=== PATIENT | female | born 1985 | race Caucasian/White ===

== ENCOUNTER 2023-10-14 16:33 | Emergency (ER) | payer MEDICAID, SELFPAY ==
--- NOTE | 2023-10-14 16:37 | ED.GENADULT ---
HPI - General Adult General Chief complaint: Nausea/Vomiting/Diarrhea Stated complaint: Nausea Time Seen by Provider: 10/14/23 16:53 Source: patient, RN notes reviewed and old records reviewed Mode of arrival: ambulatory Limitations: no limitations History of Present Illness HPI narrative: 38-year-old female presents to the [facility] with complaints nausea and vomiting. Reports vomiting 12 times today. Patient reports that she recently found out she was at home test. Last menstrual period was around the 07 of September. Also states that she had a miscarriage last July Does not have an OBGYN. States that she has an appointment with her primary care provider tomorrow for her symptoms Denies any abdominal pain or urinary symptoms Onset (ago): day(s) (2) Treatments prior to arrival: none Related Data Home Medications Medication Instructions Recorded Confirmed dextroamphetamine-amphetamine 10 15 mg PO DAILY 10/14/23 10/14/23 mg tablet venlafaxine 150 mg 150 mg PO DAILY 10/14/23 10/14/23 capsule,extended release 24 hr Allergies Allergy/AdvReac Type Severity Reaction Status Date / Time No Known Allergies Allergy Mild Unverified 10/14/23 16:46 Review of Systems Review of Systems: All systems reviewed & are unremarkable except as noted in HPI and below Constitutional: Constitutional: Reports no additional constitutional complaints Eyes: Eyes: Reports no additional eye complaints ENT: Reports system reviewed and no additional complaints, except as documented Cardiovascular: Cardiovascular: Reports no additional cardiovascular complaints, Denies chest pain and Denies dyspnea Respiratory: Respiratory: Reports no additional respiratory complaints, Denies chest congestion, Denies cough and Denies dyspnea Gastrointestinal: Gastrointestinal: Reports as per HPI, Denies abdominal pain, Reports nausea and Reports vomiting Musculoskeletal: Musculoskeletal: Reports no additional musculoskeletal complaints Integumentary/Breasts: Skin/Breast: Reports system reviewed and no additional complaints, except as docu Neurologic: Reports system reviewed and no additional complaints, except as documented Psychiatric: Psychiatric: Reports no additional psychiatric complaints Allergic/Immunologic: Allergic/Immunologic: Reports no additional allergic/immunologic complaints [facility] Family History Family History Father Hypertension Grandparent Hypertension Family history of malignant neoplasm of breast Other Cerebrovascular accident Social History Social History Smoking status: Never smoker Alcohol intake: current Comments At the time of my signature, I reviewed and agree with the nursing past medical, surgical, social, and family history. There is no relevant family history pertinent to the patient complaint. Exam Const: General: cooperative, well developed, alert, ill appearing, tired appearing, uncomfortable and well nourished Nutritional Appearance: well nourished Orientation/consciousness: patient oriented x3 Limitations: no limitations HENMT: Head: normal to inspection Ears: hearing grossly normal bilaterally and external ears normal Face/Nose/Sinus: Normal external nose present, Normal nares present, normal facial exam and face symmetric Face and sinus: normal facial exam and face symmetric Mouth: Yes lip normal and Yes dry mucous membranes Throat: uvula midline and no uvular edema Eyes: General: appearance normal, both eyes and all related structures Alignment and Position: alignment normal Periorbital: periorbital findings normal Pupils: Equal, round and reactive pupils present EOM: EOMs intact bilaterally Neck: Neck: normal visual inspection, full ROM, no lymphadenopathy and no meningeal signs Chest: Chest palpation & inspection: normal inspection of the chest Resp
[2023-10-14 16:42] VITALS: BP 140/97; PULSE 93; RESP 16; TEMP 36.7; O2SAT 100
== END 2023-10-14 17:00 | disposition short-term general hospital (02) ==
LOC: EXPGOSH 16:35
PROVIDERS: Emergency Provider Nurse Practitioner; PCP Physician Assistant
DX: R11.2 Nausea with vomiting, unspecified (principal); E86.0 Dehydration
CPT/HCPCS: 99202; G0463

== ENCOUNTER 2023-10-14 17:26 | Emergency (ER) | payer MEDICAID, SELFPAY ==
--- NOTE | ~2023-10-14 | US_ITS ---
EXAMINATION: US OB transvaginal INDICATION: R/O ectopic TECHNIQUE: Sonography of the pelvis was performed by transabdominal and transvaginal techniques. COMPARISON: None. RESULT: Uterus: 9.9 x 4.9 x 5.0 cm. Anteverted. Homogenous myometrium. Intrauterine gestational sac: Single present. Yolk sac: 0.2 cm. Embryo: Single present. [place] rump length: 0.7 cm, corresponding gestational age 6 weeks, 4 days. G estational heart rate: present 125 bpm. Subgestational hematoma: Absent . Right ovary: 4.5 x 2.7 x 3.0 cm. Vascular flow is present. Smoothly marginated 2.3 x 1.9 x 1.9 cm solid right ovarian lesion with minimal to moderate vascular flow. Left ovary: 3.5 x 2.3 x 2.3 cm. Vascular flow is present. No adnexal mass. Pelvis free fluid: None. IMPRESSION: Single, live intrauterine gestation. Estimated Gestational Age: 6 weeks, 4 days by crown rump length. TIMOTHY by ultrasound 06/04/2024. Solid 2.3 cm right ovarian lesion (ORADS-4), recommend MRI of the pelvis and gynecology-oncology cons ultation. Reviewed, dictated and finalized at location K. IMPRESSION: Single, live intrauterine gestation. Estimated Gestational Age: 6 weeks, 4 days by crown rump length. TIMOTHY by ultras ound 06/04/2024. Solid 2.3 cm right ovarian lesion (ORADS-4), recommend MRI of the pelvis and gy necology-oncology consultation.
[2023-10-14 17:39] VITALS: BP 119/53; PULSE 78; RESP 20; TEMP 36.4; O2SAT 100
[2023-10-14 20:07] VITALS: BP 135/88; BP 141/90; PULSE 74; PULSE 94
[2023-10-14 20:08] VITALS: BP 135/88; BP 138/93; PULSE 118; PULSE 91; RESP 26; O2SAT 100
[2023-10-14 20:08] LABS: Basophils Absolute Auto 0.1 K/mm3 (0.0-0.1); Basophils Percent Auto 0.7 % (0.2-1.2); Eosinophils Absolute Auto 0.1 K/mm3 (0-0.3); Eosinophils Percent Auto 0.4 % (0-4.4); Hematocrit 43.6 % (37.0-47.0); Hemoglobin 14.7 g/dL (12.0-15.0); Immature Granulocyte Absolute 0.06 K/mm3 (0.00-0.031); Immature Granulocyte Percent A 0.4 % (0-0.5); Lymphocytes Absolute Auto 3.71 K/mm3 (0.9-3.2); Lymphocytes Percent Auto 23.9 % (18.3-44.2); Mean Corpuscular HGB Conc 33.7 g/dl (32-36); Mean Corpuscular Hemoglobin 30.4 pg (26-34); Mean Corpuscular Volume 90.3 fl (80-100); Monocytes Absolute Auto 0.9 K/mm3 (0.1-0.6); Monocytes Percent Auto 5.6 % (2.6-8.5); Neutrophils Absolute Auto 10.7 K/mm3 (1.3-6.7); Platelet Count Result 380 k/mm3 (150-375); Red Blood Count 4.83 M/mm3 (4.2-5.4); Red Cell Distribution Width 13.1 % (11.5-14.5); White Blood Count 15.5 K/mm3 (4.5-10.0)
[2023-10-14 20:09] VITALS: BP 138/93; PULSE 116; RESP 24; O2SAT 99
[2023-10-14 20:17] LABS: Appearance Urine Clear (Clear); Bacteria Urine Rare /hpf; Bilirubin Urine Negative (Negative); Blood Urine Negative (Negative); Color Urine Yellow (Yellow); Glucose Urine UA Negative (Negative); Ketones Urine 3+ mg/dL (Negative); Leukocyte Esterase Ur Negative LEU/UL (Negative); Mucus Urine Present /lpf; Need Manual Microscopic Reviewed; Nitrate Urine Negative (Negative); Non Pathogenic Casts 0-2; Protein Urine Trace mg/dL (Negative); RBC Urine 0-2 /hpf (0-2); Specific Grav Ur 1.023 (1.001-1.035); Squamous Epithelial Cell Urine Few /hpf (Few); Urobilinogen Urine 0.2 mg/dL (<2.0); WBC Urine 0-5 /hpf (0-3); pH Urine 5.5 (5.0-9.0)
[2023-10-14 20:19] LABS: Add Urine Microscopic? YES
[2023-10-14 20:23] LABS: Alanine Aminotransferase 18 U/L (6-35); Albumin Level 5.4 g/dL (3.5-5.1); Alkaline Phosphatase 94 U/L (38-126); Anion Gap 12 mmol/L (4-12); Aspartate Amino Transferase 23 U/L (14-36); Bilirubin,Total 1.3 mg/dL (0.2-1.3); Blood Urea Nitrogen 10 mg/dL (7-17); Calcium 10.1 mg/dL (8.4-10.2); Carbon Dioxide 18 mmol/L (22-30); Chloride 107 mmol/L (98-107); Estimated CRCL calculation 137 ml/min; Estimated Glomerular Filt Rate > 60; Glucose 101 mg/dL (65-110); Lipase 41 U/L (23-300); Potassium 3.7 mmol/L (3.4-5.0); Sodium 137 mmol/L (137-145)
[2023-10-14 21:15] VITALS: BP 131/111; PULSE 73; RESP 12; O2SAT 100
[2023-10-14] MEDS: ONDANSETRON INJ 4 MG/2 ML VIAL IV PUSH ×2 (21:20→22:56)
[2023-10-14] MEDS: DEXTROSE 5%/LACTATED RINGERS 2,000 ML 100 ML IV CONT (21:23)
--- NOTE | 2023-10-14 22:25 | PC.NURSE ---
IV fluids ordered over 20 hours were changed by VOR[facility] by Dr. Prieto to over 60minutes
--- NOTE | 2023-10-14 22:39 | ED.GENADULT ---
HPI - General Adult General Chief complaint: Nausea/Vomiting/Diarrhea Stated complaint: vomiting Time Seen by Provider: 10/14/23 20:33 History of Present Illness HPI narrative: This is a 38-year-old female presenting with nausea and vomiting of . Patient says that she had a positive 7 days ago. Over the last 6 days she has had persistent nausea and vomiting. She has been unable to keep down water for the last 2 days. Patient denies abdominal pain, vaginal discharge bleeding. This was an unexpected . Patient is unsure when her last menstrual period was that she a suspected miscarriage in July and since then her periods have been irregular. Patient does not have an OBGYN. patient is a daily marijuana user although she has not used since she started vomiting 6 days ago. Related Data Home Medications Medication Instructions Recorded Confirmed dextroamphetamine-amphetamine 10 15 mg PO DAILY 10/14/23 10/14/23 mg tablet venlafaxine 150 mg 150 mg PO DAILY 10/14/23 10/14/23 capsule,extended release 24 hr Allergies Allergy/AdvReac Type Severity Reaction Status Date / Time No Known Allergies Allergy Mild Verified 10/14/23 20:10 [facility] Family History Family History Father Hypertension Grandparent Hypertension Family history of malignant neoplasm of breast Other Cerebrovascular accident Social History Social History Smoking status: Never smoker Alcohol intake: current Exam Narrative: APPEARANCE: Patient is actively vomiting loudly during the interview Head: atraumatic. EYES: EOMI, NOSE: Atraumatic NECK: Trachea midline RESPIRATORY: No increased rate of breathing CARDIOVASCULAR: RRR, ABDOMINAL: Soft nontender no guarding or rebound MUSCULOSKELETAl: No obvious deformities NEURO: Alert. Moving 4/4 extremities SKIN:: Warm, dry. Normal color PSYCHIATRIC: Normal affect Course Vital Signs Vital signs: Vital Signs Temperature 97.5 F L 10/14/23 17:39 Pulse Rate 78 10/14/23 17:39 Respiratory Rate 20 10/14/23 17:39 Blood Pressure 119/53 L 10/14/23 17:39 Pulse Oximetry 100 10/14/23 17:39 Oxygen Delivery Room Air 10/14/23 17:39 Temperature 97.5 F L 10/14/23 17:39 Pulse Rate 99 10/14/23 23:37 Respiratory Rate 15 10/14/23 23:37 Blood Pressure 110/60 10/14/23 23:37 Pulse Oximetry 100 10/14/23 23:37 Oxygen Delivery Room Air 10/14/23 17:39 Medical Decision Making [facility] Narrative Medical decision making narrative: -Course: 38-year-old female presenting with nausea vomiting and . transvaginal ultrasound showed a intrauterine fetus with 6 weeks gestation. It also showed an ovarian mass that will require further workup by OBGYN. Patient's vomiting was controlled with Zofran and Phenergan. Patient given fluid resuscitation as well. At discharge she is tolerating p.o.. She will be given antiemetics OBGYN follow-up. -DDX includes but is not limited to: Cyclic vomiting, nausea vomiting of , ectopic -Co-morbidities complicating care: pots, daily marijuana use -Social determinants of health: unemployed, daily marijuana use -Independent interpretation of studies: white count 15 5. Likely reactive. Other labs reviewed within limits. UDS positive for marijuana -Interventions: 2 L D5 LR, ZOfran, Phenergan -Shared decision making / Disposition:discharged. -RX doxylamine, B6, Zofran Vital Signs Vital Signs: Vital Signs Temperature 97.5 F L 10/14/23 17:39 Pulse Rate 78 10/14/23 17:39 Respiratory Rate 20 10/14/23 17:39 Blood Pressure 119/53 L 10/14/23 17:39 Pulse Oximetry 100 10/14/23 17:39 Oxygen Delivery Room Air 10/14/23 17:39 Temperature 97.5 F L 10/14/23 17:39 Pulse Rate 99 10/14/23 23:37 Respiratory Rate 15 10/14/23 23:37 Blood Pressure 110/60
[2023-10-14] MEDS: PROMETHAZINE HCL 25 MG/ML AMPUL 12.5 MG IV PUSH (22:56)
--- NOTE | 2023-10-14 23:10 | PC.NURSE ---
care and report given to SVETA Pascal. all questions answered.
[2023-10-14] MEDS: SODIUM CHLORIDE 0.9% IV 50 ML (23:13)
[2023-10-14 23:37] VITALS: BP 110/60; PULSE 99; RESP 15; O2SAT 100
[2023-10-14 23:47] LABS: Amphetamine Screen Urine Negative (Negative); Barbiturate Screen Urine Negative (Negative); Benzodiazepines Screen Urine Negative (Negative); Cannabinoid Screen Urine Positive (Negative); Cocaine Screen Urine Negative (Negative); Methadone Screen Urine Negative (Negative); Opiate Screen Urine Negative (Negative); Phencyclidine Screen Urine Negative (Negative)
[2023-10-15 01:08] VITALS: BP 104/58; PULSE 92; RESP 16; O2SAT 100
== END 2023-10-15 01:09 | disposition home or self-care (01) ==
PROVIDERS: Emergency Provider Emergency Medicine; PCP Physician Assistant
DX: O21.8 Other vomiting complicating pregnancy (principal); O99.321 Drug use complicating pregnancy, first trimester; F12.90 Cannabis use, unspecified, uncomplicated; O99.891 Other specified diseases and conditions complicating pregnancy; N83.8 Other noninflammatory disorders of ovary, fallopian tube and broad ligament; Z3A.01 Less than 8 weeks gestation of pregnancy
CPT/HCPCS: 36415; 76801; 76817; 80053; 80307; 81001; 81025; 83690; 84702; 85025; 96361; 96374; 96375; 96376; 99284; J2405; J2550; J7121